=== PATIENT | female | born 1990 | race African-American/Black ===

== ENCOUNTER 2017-10-01 18:49 | Emergency (ER) | payer OTHER, SELFPAY ==
[2017-10-01] MEDS ORDERED: Acetaminophen 500 MG TAB ONE (21:22)
== END 2017-10-01 22:05 | disposition home or self-care (01) ==
LOC: ERS 18:49
DX: J06.9 Acute upper respiratory infection, unspecified (principal); J45.909 Unspecified asthma, uncomplicated
CPT/HCPCS: 87804; 99283

== ENCOUNTER 2017-11-17 17:45 | Emergency (ER) | payer SELFPAY | END 2017-11-17 17:59 | disposition left against medical advice (07) | LOC: ERS 17:45 | DX: Z53.21 Procedure and treatment not carried out due to patient leaving prior to being seen by health care provider (principal) ==

== ENCOUNTER 2017-11-17 19:21 | Emergency (ER) | payer OTHER, SELFPAY ==
[2017-11-17 19:44] LABS: Bilirubin Negative (Negative); Blood, Urine Negative (Negative); Clarity Clear (Clear); Glucose, Urine (Dipstick) Negative (Negative); Leukocyte Negative (Negative); Nitrite Negative (Negative); Protein, Urine (Dipstick) Negative (Neg-Trace); pH, Urine 5.5 (5.0-9.0)
[2017-11-17 19:45] LABS: Specific Gravity, Urine 1.028 (1.002-1.036)
[2017-11-17 19:46] LABS: Pregnancy Test - Urine (BHCG) Negative (Negative); Pregu Control Background? CLEAR/WHITE (CLR/WHITE); Pregu Control Bar Appear? YES (CONTROL BAR); Specific Gravity 1.028 (1.002-1.036)
== END 2017-11-17 19:54 | disposition home or self-care (01) ==
LOC: SCSER 19:21
DX: R30.0 Dysuria (principal)
CPT/HCPCS: 81003; 81025; 87086; 99283

== ENCOUNTER 2018-01-29 02:09 | Emergency (ER) | payer OTHER ==
[2018-01-29 02:43] LABS: Bilirubin Negative (Negative); Blood, Urine Negative (Negative); Clarity CLEAR (Clear); Glucose, Urine (Dipstick) Negative (Negative); Leukocyte Negative (Negative); Nitrite Negative (Negative); Protein, Urine (Dipstick) Negative (Neg-Trace)
[2018-01-29] MEDS ORDERED: cefTRIAXone\\ROCEPHIN 250 MG VIAL ONE (03:19)
[2018-01-29] MEDS ORDERED: Lidocaine 1% PF 5 ML VIAL ONE (03:19)
[2018-01-29] MEDS ORDERED: Azithromycin 250 MG TAB ONE (03:19)
[2018-01-29 05:30] LABS: Pregnancy Test - Urine (BHCG) Negative (Negative); Pregu Control Background? CLEAR/WHITE (CLR/WHITE); Pregu Control Bar Appear? YES (CONTROL BAR); Specific Gravity 1.029 (1.002-1.036)
[2018-02-01 03:16] LABS: Chlamydia by PCR Not Detected (NotDetected); GC by PCR Not Detected (NotDetected)
== END 2018-01-29 03:40 | disposition home or self-care (01) ==
LOC: ERS 02:09
DX: N72 Inflammatory disease of cervix uteri (principal)
CPT/HCPCS: 81003; 81025; 87086; 87480; 87491; 87510; 87591; 87660; 96372; J0696; J2001

== ENCOUNTER 2018-05-24 21:22 | Emergency (ER) | payer OTHER, SELFPAY ==
[2018-05-24] MEDS ORDERED: diphenhydrAMINE 50 MG/ML VIAL ONE (22:43)
[2018-05-24] MEDS ORDERED: Ketorolac Tromethamine 30 MG/ML VIAL ONE (22:43)
[2018-05-24] MEDS ORDERED: Prochlorperazine 10 MG/2 ML VIAL ONE (22:43)
== END 2018-05-24 23:47 | disposition home or self-care (01) ==
LOC: SCSER 21:22
DX: R51 Headache (principal)
CPT/HCPCS: 96365; 96375; J0780; J1200; J1885

== ENCOUNTER 2018-10-19 00:02 | Emergency (ER) | payer SELFPAY ==
[2018-10-19 00:41] LABS: Bilirubin Negative (Negative); Blood, Urine Negative (Negative); Clarity Turbid (Clear); Glucose, Urine (Dipstick) Negative (Negative); Leukocyte Small (Negative); Nitrite Negative (Negative); Protein, Urine (Dipstick) Negative (Neg-Trace); Specific Gravity, Urine 1.025 (1.005-1.030); pH, Urine 6.5 (5.0-9.0)
[2018-10-19 00:42] LABS: Bacteria/HPF 1+ HPF (None Seen); Crystals/HPF 2+ AMORPH URATES HPF (Negative); Hyaline Casts/LPF NONE SEEN LPF (0-3 Hyaline); RBC/HPF None Seen HPF (0-3); WBC/HPF 0-3 HPF (0-3)
[2018-10-19 00:44] LABS: Pregnancy Test - Urine (BHCG) Negative (Negative); Pregu Control Background? CLEAR/WHITE (CLR/WHITE); Pregu Control Bar Appear? YES (CONTROL BAR)
[2018-10-19 00:45] LABS: Specific Gravity 1.025 (1.002-1.036)
== END 2018-10-19 01:00 | disposition home or self-care (01) ==
LOC: SCSER 00:02
DX: N89.8 Other specified noninflammatory disorders of vagina (principal); R30.0 Dysuria; J45.909 Unspecified asthma, uncomplicated
CPT/HCPCS: 81003; 81015; 81025; 87086; 99281

== ENCOUNTER 2018-12-04 00:20 | Emergency (ER) | payer SELFPAY ==
[2018-12-04 00:38] LABS: Bilirubin Negative (Negative); Blood, Urine Negative (Negative); Clarity Clear (Clear); Glucose, Urine (Dipstick) Negative (Negative); Leukocyte Moderate (Negative); Nitrite Negative (Negative); Pregu Control Background? CLEAR/WHITE (CLR/WHITE); Pregu Control Bar Appear? YES (CONTROL BAR); Protein, Urine (Dipstick) Negative (Neg-Trace)
[2018-12-04 00:40] LABS: Pregnancy Test - Urine (BHCG) Negative (Negative)
[2018-12-04 00:42] LABS: Bacteria/HPF 1+ HPF (None Seen); RBC/HPF 0-3 HPF (0-3)
[2018-12-04 00:43] LABS: Hyaline Casts/LPF 0-3 HYALINE CAST LPF (0-3 Hyaline)
== END 2018-12-04 01:11 | disposition home or self-care (01) ==
LOC: SCSER 00:20
DX: N39.0 Urinary tract infection, site not specified (principal); J45.909 Unspecified asthma, uncomplicated
CPT/HCPCS: 81003; 81015; 81025; 87480; 87491; 87510; 87591; 87660; 99284

== ENCOUNTER 2018-12-07 18:24 | Observation (INO) | payer SELFPAY ==
[2018-12-07] MEDS ORDERED: Lidocaine Viscous Sol 2% 15 ml UD Cup ONE (18:50)
[2018-12-07] MEDS ORDERED: Mag-Al Plus 1200 MG/1200 MG/120 MG/30 ML UDCUP ONE ×2 (18:50)
[2018-12-07 19:16] LABS: Hemoglobin 11.1 g/dL (12.0-16.0); Mean Corpuscular Hemoglobin 19.3 pg (27.0-31.0); Mean Corpuscular Volume 64.2 fL (78.0-98.0); Mean Platelet Volume 9.2 fL (7.4-10.4); Platelet Count 254 thou/uL (130-400); RBC Distribution Width 13.1 % (11.5-14.5); Red Blood Cell (RBC) Count 5.76 mill/uL (4.20-5.40); White Blood Cell (WBC) Count 6.2 thou/uL (4.8-10.8)
[2018-12-07 19:26] LABS: #Eosinphils 0.1 thou/uL (0.0-0.7); #Lymphocytes 1.2 thou/uL (1.20-3.40); #Monocytes 0.5 thou/uL (0.11-0.59); #Neutrophils 4.3 thou/uL (1.40-6.50); %Basophils 0.8 % (0.0-1.0); %Eosinophils 1.7 % (0.0-10.0); %Lymphocytes 19.7 % (21.0-51.0); %Monocytes 7.9 % (0.0-10.0)
[2018-12-07 19:31] LABS: ALT (SGPT) 58 U/L (8-55); AST (SGOT) 140 U/L (5-34); Albumin 3.8 g/dL (3.5-5.0); Alkaline Phosphatase 133 U/L (40-150); Anion Gap 11 mmol/L (10-20); BUN (Urea Nitrogen) 8 mg/dL (7.0-18.7); Bilirubin, Total 0.6 mg/dL (0.2-1.2); Calc. Creatinine Clearance 0 mL/min (70-130); Calcium 9.1 mg/dL (7.8-10.44); Carbon Dioxide 24 mmol/L (22-29); Estimated GFR-MDRD Greater than 90; Globulin 3.1 g/dL (2.4-3.5); Glucose 105 mg/dL (70-105); Lipase 9 U/L (8-78); Protein, Total 6.9 g/dL (6.0-8.3); Sodium 138 mmol/L (136-145)
[2018-12-07 19:37] LABS: Chloride 107 mmol/L (98-107)
--- NOTE | 2018-12-07 20:15 | ULT ---
RIGHT UPPER QUADRANT ULTRASOUND: 12/07/18 INDICATION: Right upper quadrant pain with nausea. FINDINGS: No focal hepatic lesion is evident. The visualized pancreas is unremarkable appearing. There are numerous stones within the gallbladder. There is mild gallbladder wall thickening of 3.4 mm . No pericholecystic fluid is evident. No sonographic Wilkerson's sign is reported. Common bile duct lisa sures 6.1 mm which is upper limits of normal. The right kidney measures 9.9 cm in length. No focal renal lesion or hydronephrosis is evident. IMPRESSION: Cholelithiasis and mild gallbladder wall thickening. Findings are equivocal by sonography for acute c holecystitis. If clinically indicated, a HIDA scan may be helpful for further evaluation. Common bile duct is upper limits of normal measuring 6.1 mm. POS: BH
[2018-12-07] MEDS ORDERED: Piperacillin/Tazobactam 4.5 GM VIAL ONE (20:29)
[2018-12-07] MEDS ORDERED: Sodium Chloride 0.9% 100 ML ONE (20:30)
[2018-12-07] MEDS ORDERED: Morphine 4 MG/ML VIAL ONE (20:33)
[2018-12-07] MEDS ORDERED: Ondansetron PF 4 MG/2 ML Vial IVP PRN (22:47)
[2018-12-07] MEDS ORDERED: Ondansetron ODT 4 MG TAB SL PRN (22:47)
[2018-12-07 22:58] VITALS: BP 121/81; TEMP 98; BMI 31.1
[2018-12-07] MEDS: Morphine 4 MG/ML VIAL SLOW IVP PRN (23:06)
[2018-12-07] MEDS: Sodium Chloride 0.9% 1,000 ML IV SCH (23:08)
[2018-12-08] MEDS: Morphine 4 MG/ML VIAL SLOW IVP PRN (03:09)
[2018-12-08] MEDS: Sodium Chloride 0.9% 1,000 ML IV SCH (09:16)
[2018-12-08] MEDS ORDERED: Dextrose 50% Abboject 50 ML SYRINGE SLOW IVP PRN (11:10)
[2018-12-08] MEDS ORDERED: Ondansetron ODT 4 MG TAB PO PRN (11:10)
[2018-12-08] MEDS ORDERED: Morphine 2 MG/ML SYRINGE SLOW IVP PRN (11:10)
[2018-12-08] MEDS ORDERED: Dextrose 5% in Water 1,000 ML IV PRN (11:10)
[2018-12-08] MEDS ORDERED: D5 1/2 NS w/20 mEq KCL 1,000 ML IV SCH (11:15)
[2018-12-08] MEDS ORDERED: Fentanyl 100 MCG/2 ML VIAL ONE ×2 (12:58→15:21)
[2018-12-08] MEDS ORDERED: Bupivacaine/Epinephrine 0.25% 30 ML VIAL ONE (12:58)
[2018-12-08] MEDS ORDERED: Ketorolac Tromethamine 30 MG/ML VIAL ONE (13:06)
[2018-12-08] MEDS ORDERED: cefOXitin 2 GM VIAL ONE (13:06)
[2018-12-08] MEDS ORDERED: Sodium Chloride 0.9% 100 ML ONE (13:06)
[2018-12-08] MEDS ORDERED: Rocuronium Bromide 10 MG/ML (10ML VIAL) ONE (17:02)
[2018-12-08] MEDS ORDERED: Lidocaine 1% PF 5 ML VIAL ONE (17:02)
[2018-12-08] MEDS ORDERED: PROPOFOL 200 MG/20 ML VIAL ONE (17:02)
[2018-12-08] MEDS ORDERED: Glycopyrrolate 0.2 MG/ML 5 ML SYRINGE ONE (17:02)
[2018-12-08] MEDS ORDERED: Ondansetron PF 4 MG/2 ML Vial ONE (17:02)
[2018-12-08] MEDS ORDERED: Dexamethasone 20 MG/5 ML VIAL ONE (17:02)
--- NOTE | 2018-12-08 20:07 | HP ---
CHIEF COMPLAINT: Right upper quadrant pain, cholelithiasis. HISTORY OF PRESENT ILLNESS: The patient is a 28-year-old black female. She presented to the emergency room last night complaining of right upper quadrant abdominal pain. This initially started substernal and radiated to right upper quadrant. She was nauseated, but did not vomit. In the emergency room, evaluation included laboratory studies and a gallbladder ultrasound. Gallbladder ultrasound revealed cholelithiasis with a nondilated common bile duct. There was question of gallbladder wall thickening. The laboratory studies revealed normal white blood cell count, but slightly elevated transaminases. She was admitted to my service for further care. She was felt in the emergency room to have fairly severe pain that was somewhat challenging to control. PAST MEDICAL HISTORY: Recent urinary tract infection. PAST SURGICAL HISTORY: None. MEDICATIONS: Flagyl. ALLERGIES: NO KNOWN DRUG ALLERGIES. PERSONAL AND SOCIAL HISTORY: She is not , but has 3 children. 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 She does not smoke and drinks alcohol occasionally. REVIEW OF SYSTEMS: Otherwise unremarkable. FAMILY HISTORY: Noncontributory. PHYSICAL EXAMINATION: VITAL SIGNS: She is afebrile with normal vital signs. GENERAL: She is a well-developed, well-nourished, pleasant black female, resting in bed, in no acute distress. She is alert and oriented x3. HEAD, EYES, EARS, NOSE, AND THROAT: Unremarkable. NECK: Supple without mass or tenderness. LUNGS: Clear to auscultation throughout. CARDIAC: Regular rate and rhythm without murmur. ABDOMEN: Soft, nontender, and nondistended. She has some mild discomfort in the right upper quadrant, but notes that this is substantially improved. EXTREMITIES: Unremarkable. ASSESSMENT: The patient with symptomatic cholelithiasis. She apparently had an episode of fairly severe biliary colic. RECOMMENDATIONS: Laparoscopic cholecystectomy. I have discussed the operation in detail with the patient as well as potential risks. She understands and agrees to proceed with surgery at this time. Job ID: [id number]
[2018-12-08] MEDS ORDERED: Famotidine/PF 20 mg/2ml Vial SLOW IVP SCH (21:00)
--- NOTE | 2018-12-09 12:04 | OP ---
DATE OF PROCEDURE: 12/08/2018 PREOPERATIVE DIAGNOSIS: Symptomatic cholelithiasis. POSTOPERATIVE DIAGNOSIS: Symptomatic cholelithiasis. OPERATION PERFORMED: Laparoscopic cholecystectomy. ANESTHESIA: General endotracheal. INDICATIONS: The patient is a 28-year-old black female. She presented with symptoms referable to gallbladder and ultrasound-proven cholelithiasis. She was taken to the operating room at this time for laparoscopic cholecystectomy. DESCRIPTION OF OPERATION: Informed consent was obtained. The patient was taken to the operating room where general endotracheal anesthesia was obtained with the patient in the supine position. The abdomen was prepped with Betadine and draped in the usual sterile fashion. 0.25% Marcaine with epinephrine was infiltrated below the umbilicus and a 10 mm infraumbilical incision was created. A Veress needle was passed through this incision into the peritoneal cavity. A pneumoperitoneum was established using carbon dioxide up to a pressure of 15 mmHg. Local anesthetic was infiltrated and 3 additional 5 mm right upper quadrant incisions were created. Through the mid incision, a 5 mm port was passed into the peritoneal cavity. The camera was passed through this port and under direct vision, an 11 port was passed through the infraumbilical incision. The camera was replaced through this port, and under direct vision, 2 additional 5 mm ports were passed through the incisions already created. The gallbladder was grasped and retracted in a cephalad direction. Minimal adhesions were bluntly stripped away from the apex of the gallbladder, and the apex was retracted laterally and inferiorly. Careful dissection was carried out to the apex of the gallbladder to identify the cystic duct and cystic artery. These were each carefully dissected circumferentially. The duct was of normal caliber. Both the duct and the artery were divided between clips, leaving 2 on the side to remain within the abdomen. The gallbladder was then dissected out of the gallbladder fossa using electrocautery and removed through the infraumbilical port site. The fascia was closed with 0 Vicryl suture and a GraNee needle. The right upper quadrant was inspected and irrigated. All irrigant was aspirated. All ports and instruments were removed under direct vision. Pneumoperitoneum was carefully evacuated. Additional local anesthetic was infiltrated into each port site. The skin edges were approximated with 4-0 Monocryl subcuticular sutures, and Dermabond was placed externally. There were no complications. The patient tolerated the procedure well and was taken to the recovery room in stable condition. FINDINGS: The patient's gallbladder had some minimal surrounding inflammation. The gallbladder wall did not appear to be particularly thickened. The duct was small and noninflamed and a cholangiogram was not obtained. The gallbladder was difficult to remove from within the abdomen secondary to numerous yellow gallstones, the size of a kernel of corn. These all had to be removed percutaneously to allow gallbladder removal. Additionally, the patient had a an umbilical hernia noted at the beginning of the surgery and the umbilical port was intentionally placed through that hernia such that the hernia was repaired during the course of closure. There were no complications. Blood loss was negligible. The patient tolerated the procedure well and was taken to recovery room in stable condition. Job ID: [id number]
== END 2018-12-08 18:53 | disposition home or self-care (01) ==
LOC: SCSER 18:24 → SURG A 20:30
PROVIDERS: ADMIT Specialist; ATTEND Specialist
PROC: 0FT44ZZ Resection of Gallbladder, Percutaneous Endoscopic Approach (ICD-10-PCS; principal; 2018-12-08)
DX: K80.10 Calculus of gallbladder with chronic cholecystitis without obstruction (principal); N39.0 Urinary tract infection, site not specified; F12.10 Cannabis abuse, uncomplicated; Z79.2 Long term (current) use of antibiotics
CPT/HCPCS: 36415; 76705; 80053; 83690; 85025; 85060; 88304; 96361; 96365; 96372; 96375; 96376; G0378; J0131; J0500; J0694; J1100; J1885; J2001; J2270; J2405; J2543; J2704; J3010; J3490

== ENCOUNTER 2019-03-11 14:09 | Emergency (ER) | payer BC ==
[2019-03-11 14:57] LABS: Bilirubin Negative (Negative); Blood, Urine Negative (Negative); Clarity Clear (Clear); Glucose, Urine (Dipstick) Negative (Negative); Leukocyte Negative (Negative); Nitrite Negative (Negative); Protein, Urine (Dipstick) Negative (Neg-Trace); Urobilinogen 0.2 mg/dL (Less than 2)
[2019-03-11 15:25] LABS: Pregnancy Test - Urine (BHCG) Negative (Negative); Pregu Control Background? CLEAR/WHITE (CLR/WHITE); Pregu Control Bar Appear? YES (CONTROL BAR); Specific Gravity 1.025 (1.002-1.036)
[2019-03-12 20:36] LABS: Chlamydia by PCR Not Detected (NotDetected); GC by PCR Not Detected (NotDetected)
== END 2019-03-11 15:22 | disposition home or self-care (01) ==
LOC: SCSER 14:09
DX: R30.0 Dysuria (principal); R35.0 Frequency of micturition; N89.8 Other specified noninflammatory disorders of vagina
CPT/HCPCS: 81003; 81025; 87086; 87480; 87491; 87510; 87591; 87660; 99283

== ENCOUNTER 2019-07-07 19:25 | Emergency (ER) | payer BC ==
[2019-07-07 19:45] LABS: Bilirubin Negative (Negative); Blood, Urine Negative (Negative); Clarity Slightly Cloudy (Clear); Glucose, Urine (Dipstick) Negative (Negative); Leukocyte Negative (Negative); Nitrite Negative (Negative); Protein, Urine (Dipstick) Negative (Neg-Trace)
[2019-07-07 19:47] LABS: Pregnancy Test - Urine (BHCG) Negative (Negative)
[2019-07-07 19:48] LABS: Pregu Control Background? CLEAR/WHITE (CLR/WHITE); Pregu Control Bar Appear? YES (CONTROL BAR); Specific Gravity 1.025 (1.002-1.036)
== END 2019-07-07 20:15 | disposition home or self-care (01) ==
LOC: SCSER 19:25
DX: R30.0 Dysuria (principal); J45.909 Unspecified asthma, uncomplicated
CPT/HCPCS: 81003; 81025; 99283

== ENCOUNTER 2020-05-02 08:19 | Outpatient (CLI) | payer BC, OTHER ==
[2020-05-02 17:13] LABS: SARS-CoV-2 MS2 Positive; SARS-CoV-2 N Gene Negative; SARS-CoV-2 S Gene Negative; SARS-CoV-2 by NAA Not Detected (NotDetected); SARS-CoV-2 orf1ab Negative
== END 2020-05-02 08:20 | disposition home or self-care (01) ==
LOC: LABSCS 08:19
PROVIDERS: ATTEND Family Medicine
DX: Z20.828 Contact with and (suspected) exposure to other viral communicable diseases (principal)
CPT/HCPCS: 87635; U0003

== ENCOUNTER 2020-05-04 09:00 | Day surgery (SDC) | payer BC, OTHER ==
[2020-05-04] MEDS ORDERED: Iron Sucrose Complex 500 MG in Sodium Chloride 0.9% 250 ML 250 ML IVPB SCH (10:00)
[2020-05-04] MEDS ORDERED: Acetaminophen 500 MG TAB PO PRN (10:00)
--- NOTE | 2020-05-04 10:23 | PDOC.BPN ---
- Brief Progress Note Encounter Date: 05/04/20 Encounter Time: 09:50 29 yo @ 38 wks presents to L&D for iron infusion. Pt has anemia of with associated microcytic iron deficiency anemia. Last hgb was 9.8 with a MCV of 66.2. She is otherwise feeling well this morning. Plan is to infuse iron and reassess after infusion to assure no adverse reactions prior to DC. VSS, NAD Iron deficiency anemia -infusion iron per L&D protocol -reassess post infusion prior to DC Yury Mcclellan - PGY2
[2020-05-04 10:35] VITALS: BMI 30.9
== END 2020-05-04 13:27 | disposition home health service (06) ==
LOC: L&D/OP 09:00
PROVIDERS: ATTEND Family Medicine
DX: O99.013 Anemia complicating pregnancy, third trimester (principal); D50.9 Iron deficiency anemia, unspecified; Z3A.38 38 weeks gestation of pregnancy
CPT/HCPCS: 96361; 96365; 96366; 99283; J1756; J7050

== ENCOUNTER 2020-05-10 08:09 | Outpatient (CLI) | payer BC, OTHER ==
[2020-05-11 14:53] LABS: SARS-CoV-2 MS2 Positive; SARS-CoV-2 N Gene Negative; SARS-CoV-2 S Gene Negative; SARS-CoV-2 by NAA Not Detected (NotDetected); SARS-CoV-2 orf1ab Negative
== END 2020-05-10 08:10 | disposition home or self-care (01) ==
LOC: LABBT 08:09
PROVIDERS: ATTEND Family Medicine
DX: Z20.828 Contact with and (suspected) exposure to other viral communicable diseases (principal)
CPT/HCPCS: 87635; U0003

== ENCOUNTER 2020-05-12 11:32 | Inpatient (IN) | payer BC, OTHER ==
[2020-05-12] MEDS ORDERED: Lidocaine 1% (PF) 30 ML VIAL ONE (12:02)
[2020-05-12] MEDS ORDERED: Fentanyl 4 mcg/Bup 0.1% Cadd 0 ML ONE (12:10)
[2020-05-12] MEDS ORDERED: Penicillin G Potassium 5 MILL.UNITS VIAL ONE (12:11)
[2020-05-12] MEDS ORDERED: Lidocaine 1% (PF) 30 ML VIAL SC PRN (12:16)
[2020-05-12] MEDS ORDERED: Docusate 100 MG CAP PO PRN (12:16)
[2020-05-12] MEDS ORDERED: Ondansetron PF 4 MG/2 ML Vial IVP PRN (12:16)
[2020-05-12] MEDS ORDERED: NS / Oxytocin 40 units/1000ml 1,000 ML IV PRN (12:16)
[2020-05-12] MEDS ORDERED: hydrALAZINE 20 MG/ML VIAL SLOW IVP PRN ×2 (12:16→16:28)
[2020-05-12] MEDS ORDERED: Promethazine HCl 25 MG/ML VIAL IM PRN (12:16)
[2020-05-12] MEDS ORDERED: Lactated Ringer's 1,000 ML IV SCH (12:30)
[2020-05-12] MEDS: NS / Oxytocin 40 units/1000ml 1,000 ML ONE ×2 (12:31→14:58)
[2020-05-12] MEDS ORDERED: Misoprostol 200 MCG TAB ONE (12:42)
[2020-05-12] MEDS ORDERED: Misoprostol 200 MCG TAB PR PRN (12:43)
[2020-05-12] MEDS ORDERED: Ibuprofen 800 MG TAB PO PRN (12:43)
[2020-05-12 13:04] LABS: Hemoglobin 12.2 g/dL (12.0-16.0); Mean Corpuscular HGB CONC 32.9 g/dL (32.0-36.0); Mean Corpuscular Hemoglobin 21.7 pg (27.0-31.0); Mean Platelet Volume 11.2 fL (7.4-10.4); Platelet Count 253 thou/uL (130-400); RBC Distribution Width 14.2 % (11.5-14.5); Red Blood Cell (RBC) Count 5.62 mill/uL (4.20-5.40); White Blood Cell (WBC) Count 8.2 thou/uL (4.8-10.8)
[2020-05-12 13:24] VITALS: BMI 31.2
[2020-05-12 13:32] LABS: Syphilis Antibody Nonreactive (Nonreactive); Syphilis Antibody Index 0.03 S/CO (<1.00 Non-Reactive)
[2020-05-12 14:10] LABS: HBSAg Index 0.19 S/CO (0-0.99); Hep B Surf Ag Non-Reactive S/CO (NonReactive)
--- NOTE | 2020-05-12 15:13 | PDOC.FPROB ---
FMR OB H&P: HPI - History of Present Illness Chief Complaint: contractions History of Present Illness: 29 y/o F at 39.1 weeks presents for contractions that have been occuring since last night. Good movement, no LOF. She is feeling frequent contractions and is uncomfortable during the contractions. No vaginal bleeding. complicated by anemia requiring iron infusion. Had to be induced in all previous pregnancies. She was scheduled to get an elective induction tomorrow and COVID screen was negative. Primary Care Physician: EDY Aguirre FMR OB H&P: Current - Care : 4 Para: 3003 Gestational age: 39.1 Due date: 05/18/2020 Dating Criteria: LMP, 11.5 wk sono Course/Complications: Anemia of s/p iron infusion GBS + - OB Labs Blood type: A RH: positive HIV: negative RPR: negative HepBsAg: negative Rubella: immune Quad screen: negative Gonorrhea: negative Chlamydia: negative Pap Smear: NILM 1 hour gtt: 1 hr 50g 137 3 hour GTT: 3H GTT 75/170/147/90 GBS: positive H&H: H/H 9.5/29.2 FMR OB H&P: History - Past Medical History PMH: asthma, seasonal allergies - OB History OB History: anemia of GBS pos - [employer] History [employer] History: unremarkable - Surgical History Sx History: cholecystectomy - Social History Social History: denies etoh, tobacco, drugs - Family History Family History: diabetes, down's syndrome FMR OB H&P: Medications - Current Home Medications: Medication Instructions Recorded Confirmed Type Ascorbic Acid [Vitamin C] 500 mg PO DAILY 05/12/20 05/12/20 History Ferrous Sulfate 325 mg PO DAILY 05/12/20 05/12/20 History Pnv No.95/Ferrous Fum/Folic AC 1 tablet PO DAILY 05/12/20 05/12/20 History [Prenavite Tablet] Allergies/Adverse Reactions: Allergies Allergy/AdvReac Type Severity Reaction Status Date / Time No Known Allergies Allergy Verified 05/04/20 09:35 FMR OB H&P: ROS - Review of Systems General: denies: fever/chills Eyes: denies: vision changes ENT: denies: nasal congestion Cardiovascular: denies: chest pain, palpitation, edema Respiratory: denies: shortness of breath Gastrointestinal: denies: abdominal pain Genitourinary (Female): reports: contractions. denies: vaginal bleeding Neurologic: denies: headache Integumentary: denies: rash FMR OB H&P: Vital Signs - Maternal Vital signs: Vital Signs - First Documented Temp Pulse Resp BP 98.0 F 107 H 18 132/94 H 05/12/20 11:56 05/12/20 11:56 05/12/20 11:56 05/12/20 11:56 - Heart Tones Benitez contractions every: 1-2 min FMR OB H&P: Physical Exam - Physical Exam General: awake, alert and oriented, other (appears uncomfortable with contractions) HEENT: normocephalic and atraumatic, MMM, conjunctiva clear, grossly normal vision, grossly normal hearing Heart: RRR General: CTAB Abdomen: soft, gravid Musculoskeletal: pulses present Neurological: sensation to pain,touch and proprioception grossly normal Skin: no rash Lymphatic: no unusual bruising or bleeding Psychiatric: intact recent and remote memory, good judgement and insight, normal mood and affect - Pelvic Exam Vulva: no discharge, no blood Cervix: no masses SVE: 8/80/0 Membranes: intact Presentation: cephalic on bedside sono FMR OB H&P: Results - Labs Lab results: Laboratory Results - last 24 hr 05/12/20 05/12/20 05/12/20 12:15 12:15 12:15 WBC RBC Hgb Hct MCV MCH MCHC RDW Plt Count MPV Syphilis IgG/IgM Ab Nonreactive Hep Bs Antigen Non-Reactive Blood Type A POSITIVE Antibody Screen NEGATIVE 05/12/20 12:15 WBC 8.2 RBC 5.62 H Hgb 12.2 Hct 37.1 MCV 66.0 L MCH 21.7 L MCHC 32.9 RDW 14.2 Plt Count 253 MPV 11.2 H Syphilis IgG/IgM Ab Hep Bs Antigen Blood Type Antibody Screen FMR OB H&P: A/P Disposition: sIUP, active labor in active labor, presenting at 8/80/0 with membranes intact, ctx q1-2 min. - confirmed cephalic presentation on bedside sono - expectant management GBS positive - will start PCN ppx Hx asthma Well controlled - avoid hemabate Anemia of Iron infusion on 05/04, Hgb wnl - aware Discussion: Date/Time: 05/12/20 1518 This H&P was discussed with Dr. Mahoney and Dr. Bragg who agree with the above documentation and plan.
--- NOTE | 2020-05-12 15:14 | PDOC.OPDEL ---
OB Operative/Delivery Note - Additional Findings/Plan Compilations/Other Findings: Delivering Physician : Kike Bragg Attending : Dr. Mahoney Procedure: Spontaneous Vaginal Delivery Anesthesia: none QBL: pending, EBL 20 mL Pre-op Diagnosis: 1. Term intrauterine in labor 2. GBS positive 3. Hx of anemia of s/p iron infusion Post-op Diagnosis: 1. Term intrauterine , delivered 2. same as above Indications: A 29 y/o female presents in active labor Delivery Note: This is 29 yo F @ 39.1 wks who delivered a viable F infant at 1231 on 05/12/20. Patient presented at 8 cm dilation and rapidly progressed to complete. Some late decelerations were noted during the delivery, and vacuum assistance was considered although ultimately not necessary. A vigorous female was delivered over an intact perineum in the occipito-posterior position. Anterior Shoulder and then remainder of the body delivered. No nuchal cord. The head was held down and mouth and nares were bulb suctioned. Cord clamped after delayed cord clamping and cut and cord blood collected. Placenta delivered intact in the [place] presentation with trailing membranes, with a 3 vessel cord noted. Fundal massage was performed and the fundus was firm. The cervix and vagina were inspected and found to be free of lacerations. GA cytotec placed for potential retained products of conception due to trailing membranes. went to nursery in good condition for routine care. Apgars were 9/9 at 1 & 5 minutes, respectively. Patient tolerated delivery well and went to after routine recovery/care.
[2020-05-12] MEDS ORDERED: Preparation H Ointment 28 GM TUBE PR PRN (16:28)
[2020-05-12] MEDS ORDERED: Milk Of Magnesia 30 ML UDCUP PO PRN (16:28)
[2020-05-12] MEDS ORDERED: Adacel (T-DAP) 0.5 ML SYRINGE IM ONE (16:28)
[2020-05-12] MEDS ORDERED: diphenhydrAMINE 25 MG CAP PO PRN (16:28)
[2020-05-12] MEDS ORDERED: Bisacodyl 10 MG SUPP PR PRN (16:28)
[2020-05-12] MEDS ORDERED: Lanolin Ointment 7 GM TUBE TOP PRN (16:28)
[2020-05-12] MEDS ORDERED: NS / Oxytocin 40 units/1000ml 1,000 ML IV SCH (16:28)
[2020-05-12] MEDS: Ferrous Sulfate 325 MG TAB PO SCH (18:14)
[2020-05-12] MEDS: Ibuprofen 800 MG TAB PO SCH ×2 (18:14→22:22)
[2020-05-12] MEDS: Docusate Calcium (SURFAK) 240 MG CAP PO SCH (20:17)
[2020-05-12] MEDS: Acetaminophen 500 MG TAB PO PRN (20:17)
[2020-05-13] MEDS: Acetaminophen 500 MG TAB PO PRN (02:30)
[2020-05-13] MEDS: Ibuprofen 800 MG TAB PO SCH ×3 (06:19→21:01)
--- NOTE | 2020-05-13 06:59 | PDOC.PP ---
Post Progress Note Post Day #: 1 Subjective: 29 y/o --> 4004 PP day #1, c/o pelvic and vaginal pain. States she has slight vag bleeding, amount of a period. urinating well. able to walk well. no BM yet. no SOB, LH, or SOB on exertion. PO intake tolerated: yes Flatus: yes Ambulation: yes Vital Signs (12 hours) Temp Pulse Resp BP Pulse Ox 05/13/20 01:15 98.5 F 100 20 109/61 99 05/12/20 20:15 99.5 F 92 20 115/61 98 Weight Weight 82.554 kg - Physical Examination General: NAD Cardiovascular: no m/r/g, RRR Respiratory: clear to auscultation bilaterally, non-labored breathing Abdominal: + bowel sounds, lochia, no distention, appropriately TTP Fundus firm & at: umbilicus Extremities: negative homans (B) Skin: no rash Neurological: no gross focal deficits Psychiatric: A&Ox3, normal affect Result Diagrams: 05/13/20 05:42 Additional Labs: Post Labs Hep Bs Antigen Non-Reactive S/CO (NonReactive) 05/12/20 12:15 Blood Type A POSITIVE 05/12/20 12:15 - Assessment/Plan PP day #q - routine PP care - ice pack for vaginal pain GBS positive - inadequate ppx. Hx asthma Well controlled Anemia of Iron infusion on 05/04, Hgb wnl - h/h PP is 10.0/30.6 - continue Po iron 6 weeks PP. Addendum - Attending - Attending Attestation Date/Time: 05/13/20 2292 I personally evaluated the patient and discussed the management with Dr. Aguirre I agree with the History, Examination, Assessment and Plan documented above with any addition or exceptions noted below - Patient without complaints. ambulating/voiding. Afebrile VSS. A/P: 1) PPD#1 s/p - continue routine care. Anticipate d/c tomorrow.
[2020-05-13] MEDS: Ferrous Sulfate 325 MG TAB PO SCH ×2 (07:18→17:28)
[2020-05-13] MEDS: Prenatal Vitamin 1 TAB PO SCH (09:58)
[2020-05-13] MEDS: Docusate Calcium (SURFAK) 240 MG CAP PO SCH ×2 (09:58→21:01)
[2020-05-14] MEDS: Ibuprofen 800 MG TAB PO SCH (05:39)
--- NOTE | 2020-05-14 06:19 | PDOC.PP ---
Post Progress Note Post Day #: 2 Subjective: 29 y/o F s/p day #2. doing well, anticipating going home today pain well controlled. ambulating well. tolerating diet. + lochia, amount of period. Denies LH, or SOB. PO intake tolerated: yes Flatus: yes Ambulation: yes Vital Signs (12 hours) Temp Pulse Resp BP Pulse Ox 05/13/20 21:00 97.8 F 74 18 119/60 99 Weight Weight 82.554 kg - Physical Examination General: NAD Cardiovascular: no m/r/g, RRR Respiratory: clear to auscultation bilaterally, non-labored breathing Abdominal: + bowel sounds, lochia, no distention, appropriately TTP Fundus firm & at: just below umbilicus Extremities: negative homans (B) Skin: no rash Neurological: no gross focal deficits Psychiatric: A&Ox3, normal affect Result Diagrams: 05/13/20 05:42 Additional Labs: Post Labs Hep Bs Antigen Non-Reactive S/CO (NonReactive) 05/12/20 12:15 Blood Type A POSITIVE 05/12/20 12:15 (1) Normal spontaneous vaginal delivery Code(s): O80 - ENCOUNTER FOR FULL-TERM UNCOMPLICATED DELIVERY Status: Acute - Assessment/Plan PP day #2 - routine PP care - ice pack for vaginal pain GBS positive - inadequate ppx. Hx asthma Well controlled Anemia of Iron infusion on 05/04, Hgb wnl - h/h PP is 10.0/30.6 - continue Po iron 6 weeks PP. Addendum - Attending - Attending Attestation Date/Time: 05/14/20 [id number] I personally evaluated the patient and discussed the management with Dr. Aguirre I agree with the History, Examination, Assessment and Plan documented above with any addition or exceptions noted below - Pateint without complaints. afebrile VSS. A/P: 1) PPD#1 s/p - doing well. Plan to d/c home today. F/U in 2 weeks.
[2020-05-14 08:21] VITALS: BP 119/76; TEMP 98.1
[2020-05-14] MEDS: Docusate Calcium (SURFAK) 240 MG CAP PO SCH (08:34)
[2020-05-14] MEDS: Prenatal Vitamin 1 TAB PO SCH (08:34)
[2020-05-14] MEDS: Acetaminophen 500 MG TAB PO PRN (08:34)
[2020-05-14] MEDS: Ferrous Sulfate 325 MG TAB PO SCH (09:03)
== END 2020-05-14 11:00 | disposition home or self-care (01) | DRG 807 ==
LOC: L&D/OP 11:32 → L&D 13:10 → 3SW 16:06
PROVIDERS: ADMIT Student in an Organized Health Care Education/Training Program; ATTEND Student in an Organized Health Care Education/Training Program
PROC: 10E0XZZ Delivery of Products of Conception, External Approach (ICD-10-PCS; principal; 2020-05-12)
DX: O99.02 Anemia complicating childbirth (principal); Z37.0 Single live birth; O76 Abnormality in fetal heart rate and rhythm complicating labor and delivery; O99.824 Streptococcus B carrier state complicating childbirth; Z3A.39 39 weeks gestation of pregnancy; D64.9 Anemia, unspecified; O99.52 Diseases of the respiratory system complicating childbirth; J45.909 Unspecified asthma, uncomplicated
CPT/HCPCS: 36415; 85014; 85018; 85027; 86780; 86850; 86900; 86901; 87340; 87635; 99285; J2001; J2540; U0003

== ENCOUNTER 2021-03-19 16:12 | Emergency (ER) | payer OTHER ==
[2021-03-19] MEDS ORDERED: Lidocaine 1% PF 5 ML VIAL ONE ×2 (19:46→20:43)
[2021-03-19] MEDS ORDERED: traMADol HCl 50 MG TAB ONE (20:14)
== END 2021-03-19 21:37 | disposition home or self-care (01) ==
LOC: ERS 16:12
DX: N76.4 Abscess of vulva (principal)
CPT/HCPCS: 56405

== ENCOUNTER 2022-02-03 09:06 | Emergency (ER) | payer OTHER | END 2022-02-03 10:00 | disposition home or self-care (01) | LOC: ERS 09:06 | DX: J06.9 Acute upper respiratory infection, unspecified (principal) | CPT/HCPCS: 99282 ==

== ENCOUNTER 2022-02-06 13:33 | Emergency (ER) | payer MEDICAID, OTHER ==
[2022-02-06] MEDS ORDERED: Dexameth. Sod Phosp. 10 MG/ML (CHEMO USE ONLY) ONE (14:02)
== END 2022-02-06 14:09 | disposition home or self-care (01) ==
LOC: ERS 13:33
DX: J04.0 Acute laryngitis (principal); J45.909 Unspecified asthma, uncomplicated; Z79.899 Other long term (current) drug therapy
CPT/HCPCS: 99282; J1100

== ENCOUNTER 2022-02-15 15:30 | Emergency (ER) | payer MEDICAID | END 2022-02-15 18:17 | disposition home or self-care (01) | LOC: ERS 15:30 | DX: N76.0 Acute vaginitis (principal); B96.89 Other specified bacterial agents as the cause of diseases classified elsewhere; J45.909 Unspecified asthma, uncomplicated; Z79.51 Long term (current) use of inhaled steroids | CPT/HCPCS: 99283 ==

== ENCOUNTER 2022-10-01 23:55 | Emergency (ER) | payer OTHER ==
[2022-10-02] MEDS ORDERED: Ibuprofen 800 MG TAB ONE (00:48)
[2022-10-02] MEDS ORDERED: Dexameth. Sod Phosp. 10 MG/ML (CHEMO USE ONLY) ONE (01:13)
== END 2022-10-02 01:30 | disposition home or self-care (01) ==
LOC: ERS 23:55
DX: B34.9 Viral infection, unspecified (principal)
CPT/HCPCS: 71045; 87804; J1100

== ENCOUNTER 2023-11-14 12:29 | Emergency (ER) | payer OTHER ==
[2023-11-14 13:20] LABS: Influenza A by NAA Not Detected (NotDetected); Influenza B by NAA Not Detected (NotDetected); SARS-CoV-2 NAA Rapid Test Not Detected (NotDetected)
== END 2023-11-14 13:20 | disposition home or self-care (01) ==
LOC: ERS 12:29
DX: J06.9 Acute upper respiratory infection, unspecified (principal); Z55.6 Problems related to health literacy
CPT/HCPCS: 99283

== ENCOUNTER 2025-03-23 22:43 | Emergency (ER) | payer MEDICAID, SELFPAY ==
[2025-03-24 01:42] LABS: BHCG - Serum Negative (NEGATIVE); Pregs Control Background? CLEAR/WHITE (CLR/WHITE); Pregs Control Bar Appear? YES (CONTROL BAR)
[2025-03-24 01:43] LABS: ALT (SGPT) 10 U/L (Less than 34); AST (SGOT) 24 U/L (11-34); Albumin 4.0 g/dL (3.1-4.5); Alkaline Phosphatase 145 U/L (40-110); Anion Gap 11 mmol/L (10-20); BUN (Urea Nitrogen) 7 mg/dL (7.0-18.7); Bilirubin, Total 0.3 mg/dL (0.3-1.2); Calc. Creatinine Clearance 0 mL/min (70-130); Calcium 8.8 mg/dL (7.8-10.44); Carbon Dioxide 24 mmol/L (22-29); Chloride 103 mmol/L (98-107); Globulin 4.6 g/dL (2.4-3.5); Glucose 105 mg/dL (70-105); Potassium 3.9 mmol/L (3.5-5.1); Sodium 134 mmol/L (136-145)
[2025-03-24 01:49] LABS: #Basophils Less than 0.03 10x3/uL (0.0-0.2); #Eosinophils 0.16 10x3/uL (0.0-0.7); #Monocytes 0.59 10x3/uL (0.11-0.59); #Neutrophils 3.91 10x3/uL (1.40-6.50); %Basophils 0.3 % (0.0-1.0); %Eosinophils 2.2 % (0.0-10.0); %Lymphocytes 35.9 % (21.0-51.0); %Monocytes 8.0 % (0.0-10.0); %Neutrophils 53.3 % (42.0-75.0); Hematocrit 37.7 % (36.0-47.0); Hemoglobin 11.4 g/dL (12.0-16.0); Mean Corpuscular Hemoglobin 19.2 pg (27.0-31.0); Mean Corpuscular Volume 63.4 fL (78.0-98.0); Platelet Count 382 10x3/uL (130-400); Red Blood Cell (RBC) Count 5.95 mill/uL (4.20-5.40); White Blood Cell (WBC) Count 7.33 10x3/uL (4.8-10.8)
[2025-03-24 04:58] LABS: Anisocytosis MODERATE=16-30 cells HPF (0-5); Ovalocytes SLIGHT = 2-5 cells HPF (0-1); Platelet Adequacy Comment Platelets Normal; Polychromasia SLIGHT = 2-3 cells HPF (0-2)
== END 2025-03-24 02:19 | disposition home or self-care (01) ==
LOC: ERS 22:43
DX: N63.20 Unspecified lump in the left breast, unspecified quadrant (principal)
CPT/HCPCS: 80053; 83605; 84703; 85025; 99284